=== PATIENT | female | born 1970 | race Caucasian/White ===

== ENCOUNTER 2020-12-29 17:03 | Emergency (ER) | payer OTHER ==
--- NOTE | 2020-12-29 17:22 | EDM.PDOC ---
ED HPI GENERAL MEDICAL PROBLEM - General Chief Complaint: Upper Extremity Injury/Pain Stated Complaint: R WRIST INJURY Time Seen by Provider: 12/29/20 17:12 Source of Information: Reports: Patient History Limitations: Reports: No Limitations - History of Present Illness INITIAL COMMENTS - FREE TEXT/NARRATIVE: The patient fell of her horse and landed on her right arm. She has pain and swelling to her right wrist. She has no other injuries. She is right handed. Onset: Sudden Duration: Minutes: Location: Reports: Upper Extremity, Right (wrist) Quality: Reports: Sharp Severity: Moderate Worsens with: Reports: Movement Context: Reports: Trauma (Fell off of horse) Associated Symptoms: Reports: No Other Symptoms Left Wrist Pain Score (Numeric/FACES): 6 - Related Data Allergies Allergy/AdvReac Type Severity Reaction Status Date / Time No Known Allergies Allergy Verified 12/29/20 17:12 Home Meds: Home Meds Escitalopram [Lexapro] 20 mg PO DAILY 12/29/20 [History] Gabapentin [Neurontin] 300 mg PO DAILY 12/29/20 [History] Past Medical History Musculoskeletal History: Reports: Other (See Below) Other Musculoskeletal History: r foot surgery - Past Surgical History HEENT Surgical History: Reports: Eye Surgery Social & Family History - Tobacco Use Tobacco Use Status *Q: Never Tobacco User Second Hand Smoke Exposure: No - Caffeine Use Caffeine Use: Reports: Coffee - Alcohol Use Days Per Week of Alcohol Use: 5 Number of Drinks Per Day: 1 Total Drinks Per Week: 5 - Recreational Drug Use Recreational Drug Use: No Review of Systems - Review of Systems Review Of Systems: See Below Constitutional: Reports: No Symptoms Eyes: Reports: No Symptoms Ears: Reports: No Symptoms Nose: Reports: No Symptoms Mouth/Throat: Reports: No Symptoms Respiratory: Reports: No Symptoms Cardiovascular: Reports: No Symptoms GI/Abdominal: Reports: No Symptoms Genitourinary: Reports: No Symptoms Musculoskeletal: Reports: Other (right wrist injury) ED EXAM, GENERAL - Physical Exam Exam: See Below Exam Limited By: No Limitations General Appearance: Alert, No Apparent Distress Ears: Normal External Exam Nose: Normal Inspection Head: Atraumatic, Normocephalic Neck: Normal Inspection Respiratory/Chest: No Respiratory Distress Extremities: Other (Pain upon palpation and edema to the right wrist. Good sensation and pulses. She can move her fingers.) ED TRAUMA EXTREMITY PROCEDURES - Splinting Right Upper Extremity Splint Site: Right wrist Pre-Procedure NV Status: Normal Post-Procedure NV Status: Normal Splint Material: Fiberglass Splint Design: Volar, Sling Applied & Form Fitted By: Provider Provider Post-Splint Application NV Check: NV Status Normal, Good Position Complications: No Course - Vital Signs Last Recorded V/S: Last Vital Signs Temp 98.0 F 12/29/20 17:11 Pulse 66 12/29/20 17:11 Resp 19 12/29/20 17:11 BP 146/85 H 12/29/20 17:11 Pulse Ox 100 12/29/20 17:11 - Orders/Labs/Meds Orders: Active Orders 24 hr Category Date Time Status Durable Medical Equipment for Discharge [DME for Oth 12/29/20 18:15 Ordered Discharge] [COMM] Stat - Re-Assessments/Exams Free Text/Narrative Re-Assessment/Exam: 12/29/20 17:22 I have ordered an x-ray of her wrist. 12/29/20 18:17 The x-ray shows a distal radius and ulna fracture. I splinted her wrist and put her in a sling. I will discharge her home. Departure - Departure Time of Disposition: 18:20 Disposition: Home, Self-Care 01 Condition: Good Clinical Impression: Fall Qualifiers: Encounter type: initial encounter Qualified Code(s): W19.XXXA - Unspecified fall, initial encounter Distal radius fracture, right Qualifiers: Encounter type: initial encounter Fracture type: closed Fracture morphology: other intra-articular Qualified Code(s): S52.571A - Other intraarticular fracture of lower end of right radius, initial encounter for closed fracture Ulna distal fracture Qualifiers: Encounter type: initial encounter Fracture type: closed Fracture morphology: unspecified fracture morphology Laterality: right Qualified Code(s): S52.601A - Unspecified fracture of lower end of right ulna, initial encounter for closed fracture - Discharge Information *PRESCRIPTION DRUG MONITORING PROGRAM REVIEWED*: Not Applicable *COPY OF PRESCRIPTION DRUG MONITORING REPORT IN PATIENT [facility]HRZAD: Not Applicable Referrals: PCP,Not In Area [Primary Care Provider] - Forms: ED Department Discharge Additional Instructions: Ice your wrist for 15 to 20 minutes 3 to 5 times per day for 3 days. Try to elevate your wrist above your heart as much as you can. Take tylenol or motrin as needed for pain. If that does not work, try the hydrocodone. Follow up with an orthopedic surgeon at home within a week. Sepsis Event Note (ED) - Evaluation Sepsis Screening Result: No Definite Risk - Focused Exam Vital Signs: Vital Signs Temp Pulse Resp BP Pulse Ox 12/29/20 17:11 98.0 F 66 19 146/85 H 100 - My Orders Last 24 Hours: My Active Orders 12/29/20 18:15 Durable Medical Equipment for Discharge [DME for Discharge] [COMM] Stat - Assessment/Plan Last 24 Hours: My Active Orders 12/29/20 18:15 Durable Medical Equipment for Discharge [DME for Discharge] [COMM] Stat
--- NOTE | 2020-12-29 18:08 | CR ---
Right wrist: 4 views of the right wrist were obtained. Comparison: No prior studies available. Mildly comminuted distal radial fracture is seen. There is a horizontal fracture line as well as a vertical fracture line extending into the articular margin. There is posterior impaction being seen with dorsal tilt of the distal radial articular margin. Slightly displaced ulnar styloid avulsion fracture is noted. Soft tissue swelling is noted. No other acute abnormality is appreciated. Impression: 1. Wrist fracture as described above. 2. Soft tissue swelling. Diagnostic code #3
== END 2020-12-29 17:55 | disposition home or self-care (01) ==
LOC: JD.ED 17:03
DX: S52.571A Other intraarticular fracture of lower end of right radius, initial encounter for closed fracture (principal); S52.601A Unspecified fracture of lower end of right ulna, initial encounter for closed fracture; V80.010A Animal-rider injured by fall from or being thrown from horse in noncollision accident, initial encounter
CPT/HCPCS: 29125; 73110-26-RT; 73110-RT; 99283; 99283-25